=== PATIENT | male | born 1955 | race Caucasian/White ===

== ENCOUNTER 2016-06-03 06:19 | Inpatient (IN) | payer OTHER ==
[~2016-06-03] VITALS: Ht 172.7 cm; Wt 105.2 kg
[2016-06-03] VITALS (18 sets, daily range): BP systolic 115–184; BP diastolic 61–96
[~2016-06-03 06:19] MED LIST: ACET325T21 PO; ASPI81TA9 PO; CETI10TA16 PO; CLON0.1T PO; CLOP75TA27 PO; DIPH25CA58 PO; DOCU-27 PO; EZET10TA3 PO; IBUP-1007 PO; INSU100I17 SQ; INSU100I18 SQ; INSU100V5 SUBCUT; LISI2.5T PO; LOSA50TA2 PO; METF500T4 PO; MIRT30TA3 PO; NITR0.4T6 SL; NPH,100V SQ; PROAIR HFA8.5 GM IH; SIMV20TA PO; SIMV40TA3 PO; TERA2CAP3 PO; TOPI25TA32 PO; TRAM50TA PO; [UNRECOGNIZED DRUG - CODE] TP
[2016-06-03] MEDS: IV NORMAL SALINE 1000ML BAG 1,000 ML IV SCH ×2 (07:00→17:00)
[2016-06-03 07:12] LABS: BASO % 1 % (0-3); EOS % 3 % (0-3); HEMATOCRIT 43.9 % (39.0-53.0); HEMOGLOBIN 14.6 g/dL (13.0-17.5); LYMPH # 1.1 x10^3/uL (1.0-4.8); LYMPH % 22 % (24-48); MEAN CORPUSCULAR HEMOGLOBIN 30 pg (25-35); MEAN CORPUSCULAR HGB CONC 33 g/dL (31-37); MEAN CORPUSCULAR VOLUME 89 fL (79-100); MONO % 5 % (0-9); NEUT % 69 % (31-73); PLATELET COUNT 116 x10^3/uL (140-400); RED BLOOD COUNT 4.94 x10^6/uL (4.30-5.70); RED CELL DISTRIBUTION WIDTH 14.3 % (11.5-14.5); WHITE BLOOD COUNT 5.1 x10^3/uL (4.0-11.0)
[2016-06-03] MEDS ORDERED: IODIXANOL 320 MG/ML 100 ML VIAL. ONE ×2 (07:15→07:37)
[2016-06-03] MEDS ORDERED: LIDOCAINE 2% 20 ML VIAL. ONE (07:16)
[2016-06-03] MEDS ORDERED: HEPARIN for ARTERIAL LINE 1,500 ML ONE (07:16)
[2016-06-03] MEDS ORDERED: METO25TA4 PO (07:19)
[2016-06-03] MEDS ORDERED: INSU500V SQ (07:19)
[2016-06-03] MEDS ORDERED: IBUP-1007 PO (07:19)
[2016-06-03] MEDS ORDERED: ASPI81TA9 PO (07:19)
[2016-06-03] MEDS ORDERED: CLOP75TA27 PO (07:19)
[2016-06-03] MEDS ORDERED: SIMV40TA3 PO (07:19)
[2016-06-03] MEDS ORDERED: ISOS30TA4 PO (07:19)
[2016-06-03] MEDS ORDERED: NITR0.4T6 SL (07:19)
[2016-06-03] MEDS ORDERED: LISI10TA2 PO (07:19)
[2016-06-03 07:21] LABS: CALCIUM 9.1 mg/dL (8.5-10.1)
[2016-06-03 07:28] LABS: INR 1.1 (0.8-1.1); PROTHROMBIN TIME PATIENT 13.1 SEC (11.7-14.0)
--- NOTE | 2016-06-03 08:16 | PDOC ---
MODERATE SEDATION ASSESSMENT RISKS/ALTERNATIVES Risks/Alternatives Risks and alternatives of this type of sedation and procedure discussed with: RISK/ALTERNATIVES: Patient H & P ON CHART H & P H & P on chart and reviewed for co-morbid conditions and appropriate labs. H&P ON CHART: Yes STATUS PREG STATUS ASSESSED: N/A MEDS/ALLERGIES REVIEWED Meds/Allergies Reviewed Medications and Allergies including time and route of recently administered narcotics and sedatives. MEDS/ALLERGIES REVIEWED: Yes ASA RATING ASA RATING: II AIRWAY ASSESSMENT Airway Assessment Airway patency, oral function limitations, presence of caps, crowns, dentures, partials, and ability to extend neck assessed. AIRWAY ASSESSMENT: Yes MALLAMPATI SCORE MALLAMPATI SCORE: II PRE-SEDATION ASSESSMENT PRE-SEDATION ASSESSMENT: Yes NAYAN ZENDEJAS MD Jun 03, 2016 08:16
[2016-06-03] MEDS ORDERED: FENTANYL PF 250 MCG/5 ML VIAL. ONE (08:27)
[2016-06-03] MEDS ORDERED: MIDAZOLAM HCL/PF 5 MG/5 ML VIAL ONE (08:27)
[2016-06-03] MEDS ORDERED: HEPARIN for IV BOLUS 10,000 UNIT/10 ML VIAL. ONE (08:28)
[2016-06-03] MEDS ORDERED: CONTRAST GIVEN MC PRN (08:45)
[2016-06-03] MEDS ORDERED: MIDAZOLAM HCL/PF 5 MG/5 ML VIAL IV ONE (08:45)
[2016-06-03] MEDS ORDERED: IODIXANOL 320 MG/ML 100 ML VIAL. IART ONE (08:45)
[2016-06-03] MEDS ORDERED: HEPARIN for IV BOLUS 10,000 UNIT/10 ML VIAL. IV ONE (08:45)
[2016-06-03] MEDS ORDERED: FENTANYL PF 250 MCG/5 ML VIAL. IV ONE (08:45)
[2016-06-03] MEDS ORDERED: LIDOCAINE 2% 20 ML VIAL. IJ ONE (08:45)
[2016-06-03] MEDS ORDERED: NITROGLYCERIN 200 MCG/2 ML SYRINGE FOR CATH/VASC LAB. ONE (09:51)
[2016-06-03] MEDS ORDERED: NITROGLYCERIN 200 MCG/2 ML SYRINGE FOR CATH/VASC LAB. IART ONE (10:00)
[2016-06-03] MEDS ORDERED: PRASUGREL 10 MG TABLET. PO ONE (10:00)
[2016-06-03] MEDS ORDERED: PRASUGREL 10 MG TABLET. ONE (10:23)
[2016-06-03] MEDS ORDERED: NITROGLYCERIN SUBLINGUAL 0.4 MG BOTTLE OF 25. SL PRN (12:15)
[2016-06-03] MEDS ORDERED: AMIODARONE 150 MG in IV DEXTROSE 5% 100 ML IV PRN (12:15)
[2016-06-03] MEDS ORDERED: FENTANYL PF 100 MCG/2 ML VIAL. IV PRN (12:15)
[2016-06-03] MEDS ORDERED: LIDOCAINE 2% 100 MG/5 ML DISP.SYRIN. IV PRN (12:15)
[2016-06-03] MEDS ORDERED: ATROPINE 0.5 MG/5 ML DISP.SYRIN. IV PRN (12:15)
[2016-06-03] MEDS ORDERED: CYCLOBENZAPRINE 10 MG TABLET. PO PRN (12:15)
[2016-06-03] MEDS ORDERED: 0.9 % SODIUM CHLORIDE 10 ML DISP.SYRIN. IV PRN (12:15)
[2016-06-03] MEDS: PRASUGREL 10 MG TABLET. PO SCH (13:00)
--- NOTE | 2016-06-03 13:03 | EKG ---
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
[2016-06-03] MEDS: ISOSORBIDE MONONITRATE ER 30 MG TAB.ER.24H PO SCH (13:46)
[2016-06-03] MEDS: ASPIRIN ENTERIC COATED 81 MG TABLET.DR. PO SCH (13:46)
[2016-06-03] MEDS: LISINOPRIL 10 MG TABLET PO SCH (13:47)
[2016-06-03] MEDS: METOPROLOL TART IMMED RELEASE 25 MG TABLET PO SCH ×2 (13:47→21:08)
[2016-06-03] MEDS: ACETAMINOPHEN 325 MG TABLET. PO PRN ×2 (13:47→19:04)
[2016-06-03] MEDS: ATORVASTATIN CALCIUM 20 MG TABLET PO SCH ×2 (21:00→21:07)
[2016-06-03] MEDS ORDERED: SIMVASTATIN 40 MG TABLET. PO SCH (21:00)
[2016-06-04 03:30] VITALS: BP 137/69
[2016-06-04 07:25] VITALS: BP 134/65
[2016-06-04] MEDS: METOPROLOL TART IMMED RELEASE 25 MG TABLET PO SCH (08:14)
[2016-06-04] MEDS: ASPIRIN ENTERIC COATED 81 MG TABLET.DR. PO SCH (08:15)
[2016-06-04] MEDS: LISINOPRIL 10 MG TABLET PO SCH (08:15)
[2016-06-04] MEDS: ISOSORBIDE MONONITRATE ER 30 MG TAB.ER.24H PO SCH (08:15)
[2016-06-04] MEDS: PRASUGREL 10 MG TABLET. PO SCH (08:15)
[2016-06-04] MEDS: ACETAMINOPHEN 325 MG TABLET. PO PRN (08:16)
[2016-06-04 09:59] LABS: POTASSIUM 4.4 mmol/L (3.5-5.1)
[2016-06-04] MEDS ORDERED: PRAS10TA4 PO (10:01)
[2016-06-04 10:16] VITALS: BP 118/63
--- NOTE | 2016-06-04 10:49 | CARD ---
APPROVED REPORT Procedure(s) performed: HEEL TOP LIFT SPLITTER RCA - C9607 with LUIS DANIEL. PTCA DIAG 120mL Visipaque [id number] [id number] 21.5 min Fluoro HISTORY The patient is a 60 year-old male with a history of : diabetes mellitus with no treatment, coronary a rtery disease, previous PCI (The PCI date was 1997), hypertension, dyslipidemia, family history of pr emature CAD. INDICATION The indication(s) include : unstable angina , Patient is a 60-year-old male who presents to the [facility] for a planned outpatient HEEL TOP LIFT SPLITTER recanalization of his RCA. 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 Despite goal-directed medi deonna therapy at the highest tolerable doses he was continued to have exertional dyspnea and chest pain . In the setting after discussion of risks and benefits he was [facility] PCI of the RCA.. PROCEDURE NARRATIVE After appropriate consent the patient was brought to the catheterization laboratory and prepped and d raped in the supine position in usual sterile fashion. Bilateral common femoral arterial access was obtained using an 18-gauge needle and via the Seldinger approach to 6 [place] sheath were initially pl aced. Next, the sheaths were upsized to 8 [place] 45cm destination sheaths after initial pre-closure of the vessels. Subsequently, a 8000 unit bolus of heparin was administered. Next, a EBU 4.0 and an AL-[address] were engaged into the left main and right coronary arteries. Diagnostic angiography confirmed pr eviously known RCA and diagonal lesions. With the use of a Corsair catheter, and a yard pilot 200 guidewi re the proximal to distal RCA chronic total occlusion was traversed via the antegrade wire escalation approach. Contralateral injection confirmed intraluminal placement of the wire and subsequently bal loon angioplasty (2.08/25) and intervention was performed with insertion of overlapping Xience 3.0/38, 3.0/38 and 3.0/33 LUIS DANIEL from the ostium to the distal RCA post PCI angiography demonstrated excellent stent expansion with SID 3 flow in the vessel. Next, attention was then turned to the diagonal bifu rcating chronic total occlusion. Through a EBU 4.0 guide catheter and Prowater wire was placed in th e inferior diagonal branch. Next, a Corsair catheter was used to direct a yard pilot 200 guidewire into t he chronic total occlusion site of the superior branch ostium but despite repeated attempts due to po or distal visualization of the vessel this was unsuccessful. Balloon angioplasty (Trek 2.5) was t hen performed from the proximal diagonal into the inferior branch with a residual 50% stenosis but de spite this the superior branch could not be well-visualized. Therefore, further intervention was def erred. Finally, the bilateral groin sheaths were removed and the pre-close device sutures were deplo yed with adequate hemostasis. The patient received 60 mg of Effient at case completion. Findings: The left main and LAD did not demonstrate any significant obstructive disease. Left circumflex does not have any significanct disease. The first diagonal is occluded in the mid segment at the origin of a bifurcation with patency of the inferior branch and a ostial 90% stenosis and 100% subtotal occlusion of the superior branch. The RCA is diffusely diseased with 100% mid chronic occlusion with robust left to right collaterals. Conclusion 1. Successful recanalization via the antegrade wire escalation approach of the chronic occlusion of the right coronary artery. 2. Successful angioplasty of the first diagonal vessel with unsuccessful recanalization of the chron ic total occlusion of the superior branch. Recommendations Aggressive Medical Therapy Aspirin 81 mg daily Effient 10 mg daily, with resumption of Plavix after 30 days for lifelong dual anti-platelet therapy. Aggressive statin therapy and continue beta blockers and thang inhibitors as well as low-dose nitrate t herapy. Reassess in 6 weeks in clinic.
--- NOTE | 2016-06-04 15:02 | PDOC3 ---
LEX RUDD CANDY POLISHER 06/04/16 1502: Discharge Summary Visit Information Date of Admission: Jun 03, 2016 Date of Discharge: Jun 04, 2016 Admitting Diagnosis: CAD Final Diagnosis Problems Medical Problems: (1) CAD (coronary artery disease) Status: Acute Brief Hospital Course Allergies Allergies Coded Allergies Type Severity Reaction Last Updated Verified metformin Allergy Intermediate Rash 03/05/16 Yes sulfamethoxazole Allergy Intermediate 04/20/14 No trimethoprim Allergy Intermediate 04/20/14 No Vital Signs Vital Signs Date Time Temp Pulse Resp B/P Pulse Ox O2 Delivery O2 Flow Rate FiO2 06/04/16 10:16 98.3 67 18 118/63 93 Room Air 98.3 06/03/16 10:46 4.0 Lab Results Laboratory Tests Test 06/03/16 07:00 06/04/16 09:10 White Blood Count 5.1x10^3/uL (4.0-11.0) Red Blood Count 4.94x10^6/uL (4.30-5.70) Hemoglobin 14.6g/dL (13.0-17.5) Hematocrit 43.9% (39.0-53.0) Mean Corpuscular Volume 89fL (79-100) Mean Corpuscular Hemoglobin 30pg (25-35) Mean Corpuscular Hemoglobin Concent 33g/dL (31-37) Red Cell Distribution Width 14.3% (11.5-14.5) Platelet Count 116x10^3/uL (140-400) Neutrophils (%) (Auto) 69% (31-73) Lymphocytes (%) (Auto) 22% (24-48) Monocytes (%) (Auto) 5% (0-9) Eosinophils (%) (Auto) 3% (0-3) Basophils (%) (Auto) 1% (0-3) Neutrophils # (Auto) 3.5x10^3uL (1.8-7.7) Lymphocytes # (Auto) 1.1x10^3/uL (1.0-4.8) Monocytes # (Auto) 0.3x10^3/uL (0.0-1.1) Eosinophils # (Auto) 0.2x10^3/uL (0.0-0.7) Basophils # (Auto) 0.0x10^3/uL (0.0-0.2) Prothrombin Time 13.1SEC (11.7-14.0) Prothromb Time International Ratio 1.1 (0.8-1.1) Sodium Level 144mmol/L (136-145) 142mmol/L (136-145) Potassium Level 4.0mmol/L (3.5-5.1) 4.4mmol/L (3.5-5.1) Chloride Level 105mmol/L (98-107) 105mmol/L (98-107) Carbon Dioxide Level 33mmol/L (21-32) 31mmol/L (21-32) Anion Gap 6 (6-14) 6 (6-14) Blood Urea Nitrogen 15mg/dL (8-26) 16mg/dL (8-26) Creatinine 1.0mg/dL (0.7-1.3) 1.0mg/dL (0.7-1.3) Estimated GFR (Cockcroft-Gault) 76.0 76.0 Glucose Level 131mg/dL (70-99) 127mg/dL (70-99) Calcium Level 9.1mg/dL (8.5-10.1) 9.0mg/dL (8.5-10.1) Laboratory Tests Test 06/04/16 09:10 Sodium Level 142mmol/L (136-145) Potassium Level 4.4mmol/L (3.5-5.1) Chloride Level 105mmol/L (98-107) Carbon Dioxide Level 31mmol/L (21-32) Anion Gap 6 (6-14) Blood Urea Nitrogen 16mg/dL (8-26) Creatinine 1.0mg/dL (0.7-1.3) Estimated GFR (Cockcroft-Gault) 76.0 Glucose Level 127mg/dL (70-99) Calcium Level 9.0mg/dL (8.5-10.1) Brief Hospital Course Mr. Carter is a 60 old male who presented secondary to chronic total occlusion of the diagonal and RCA. Despite goal-directed medical therapy, at the highest tolerable doses, he continued to have exertional dyspnea and chest pain. After thorough discussion of risks and benefits, patient was electively brought to the catheterization laboratory for PCI of the RCA. Patient underwent successful recanalization via the antegrade wire escalation approach of the chronic occlusion of the right coronary artery, along with successful angioplasty of the first diagonal vessel with unsuccessful recanalization of the chronic total occlusion of the superior branch. Monitored overnight without complications or dysrhythmias noted on telemetry. Bilateral femoral arteriotomy site C/D/I with neurovascular status intact. Lungs CTA bilaterally. Heart tones regular; no murmurs present. DAPT with Aspirin 81 mg daily and Effient 10 mg daily, with resumption of Plavix after 30 days for lifelong dual anti-platelet therapy. Discharge Information Condition at Discharge: Improved Follow Up: Weeks (6) Disposition/Orders: D/C to Another Facility ([facility] ) Scheduled Aspirin (Aspirin Ec) 1 TAB PO DAILY (Reported) Isosorbide Mononitrate (Isosorbide Mononitrate Er) 1 TAB PO DAILY (Reported) Lisinopril (Lisinopril) 1 TAB PO DAILY (Reported) Metoprolol Tartrate (Metoprolol Tartrate) 1 TAB PO BID (Reported) Prasugrel Hcl (Effient) 1 TAB PO DAILY Simvastatin (Simvastatin) 1 TAB PO QHS (Reported) Scheduled PRN Nitroglycerin (NITROGLYCERIN SubLingual) 0.4 MG SL PRN Q5MIN PRN PRN CHEST PAIN (Reported) Miscellaneous Medications Insulin Regular, Human (Humulin R) 500 UNIT SQ (Reported) Discontinued Medications Acetaminophen (Acetaminophen) 650 MG PO (Reported) Aspirin (Aspirin Ec) 81 MG PO (Reported) Clopidogrel Bisulfate (Plavix) 75 MG PO DAILY (Reported) Clopidogrel Bisulfate (Plavix) 1 TAB PO DAILY (Reported) Ibuprofen (Ibuprofen) 600 MG PO TID PRN PRN PRN INFLAMMATION (Reported) Insulin Regular, Human (Humulin R) 0 SUBCUT TIDAC PRN PRN SEE COMMENTS (Reported ) Lisinopril (Lisinopril) 2.5 MG PO DAILY (Reported) Losartan Potassium (Cozaar) 50 MG PO BID (Reported) Metformin Hcl (Metformin Hcl) 500 MG PO DAILYBFRSUP (Reported) Mirtazapine (Mirtazapine) 30 MG PO HS (Reported) Nitroglycerin (NITROGLYCERIN SubLingual) 0.4 MG SL PRN Q5MIN PRN PRN CHEST PAIN (Reported) Nph, Human Insulin Isophane (Humulin N) 15 SQ DAILY08 (Reported) Nph, Human Insulin Isophane (Humulin N) 8 UNIT SQ HS (Reported) Simvastatin (Simvastatin) 40 MG PO HS (Reported) Terazosin Hcl (Terazosin Hcl) 1 MG PO QHS (Reported) Topiramate (Topamax) 25 MG PO BID (Reported) Patient Instructions Patient Instructions GENERAL INSTRUCTIONS: 1. Your dressing should be removed prior to leaving the hospital. 2. It is OK to shower the day after your procedure. 3. If you received stents, be sure to carry your stent information card with you in your wallet/purse at all times. 4. Call the office immediately at [phone] if you notice any fever or if there is redness, worsening tenderness/pain, increased bruising, or drainage from the puncture site. 5. Should you have bleeding from the site, lie down immediately & put pressure on the site. The pressure should be hard enough to stop the bleeding. Have the nearest person call 911. DO NOT try to drive to the ER with active bleeding. 6. If you notice a change in color, coolness to touch, or loss of feeling in the affected extremity, come to the emergency room. Please have someone drive you or call 911 if no one is available. DO NOT drive yourself. 7. If you normally take glucophage (metformin), please do not take this medicine for 48 hours following your procedure. 8. DO NOT STOP TAKING YOUR PLAVIX OR ASPIRIN UNLESS IT IS CLEARED BY A FABRIC INSPECTOR OF YOUR ORDNANCE EQUIPMENT WORKER AT OUR OFFICE. 9. QUIT SMOKING: the [place] [employer], [place] [employer], & [place] [employer] have cessation resources available on their websites 10. Please have someone available to drive you home from the hospital as you may be limited by sedation medications given during the procedure. Femoral (Groin) access: 1. Do no lifting, pushing, pulling, bending, stooping, or recurrent stair climbing for 3 days following your procedure. 2. Once past the first 3 days, do not do any HEAVY exertion or lifting for one week following the procedure. No gym workouts, running, lifting greater than a gallon of milk, etc 3. Do not submerge in bath or pool for one week. OK to drive 3 days following your procedure, but if going long distance, do not go alone & take hourly breaks to get out of car and walk around. Radial Artery (Wrist) access: 1. No pushing, pulling, lifting, typing, or anything that requires repetitive use/movement of the affected wrist for 3 days following your procedure. 2. OK to drive the day following your procedure. (This is because of effects of sedating medications.) Call the office at [phone] for any questions or concerns. NAYAN ZENDEJAS MD 06/04/16 3627: Discharge Summary Brief Hospital Course Brief Hospital Course Patient seen and examined postoperatively. No issues prior to discharge. Neurovascularly intact. A good nurse practitioner note. We'll discharge on Effient and aspirin. Remainder of medications as listed. Will follow up in clinic in approximately 6 weeks. Discharge Information Scheduled Aspirin (Aspirin Ec) 1 TAB PO DAILY (Reported) Isosorbide Mononitrate (Isosorbide Mononitrate Er) 1 TAB PO DAILY (Reported) Lisinopril (Lisinopril) 1 TAB PO DAILY (Reported) Metoprolol Tartrate (Metoprolol Tartrate) 1 TAB PO BID (Reported) Prasugrel Hcl (Effient) 1 TAB PO DAILY Simvastatin (Simvastatin) 1 TAB PO QHS (Reported) Scheduled PRN Nitroglycerin (NITROGLYCERIN SubLingual) 0.4 MG SL PRN Q5MIN PRN PRN CHEST PAIN (Reported) Miscellaneous Medications Insulin Regular, Human (Humulin R) 500 UNIT SQ (Reported) Discontinued Medications Acetaminophen (Acetaminophen) 650 MG PO (Reported) Aspirin (Aspirin Ec) 81 MG PO (Reported) Clopidogrel Bisulfate (Plavix) 75 MG PO DAILY (Reported) Clopidogrel Bisulfate (Plavix) 1 TAB PO DAILY (Reported) Ibuprofen (Ibuprofen) 600 MG PO TID PRN PRN PRN INFLAMMATION (Reported) Insulin Regular, Human (Humulin R) 0 SUBCUT TIDAC PRN PRN SEE COMMENTS (Reported ) Lisinopril (Lisinopril) 2.5 MG PO DAILY (Reported) Losartan Potassium (Cozaar) 50 MG PO BID (Reported) Metformin Hcl (Metformin Hcl) 500 MG PO DAILYBFRSUP (Reported) Mirtazapine (Mirtazapine) 30 MG PO HS (Reported) Nitroglycerin (NITROGLYCERIN SubLingual) 0.4 MG SL PRN Q5MIN PRN PRN CHEST PAIN (Reported) Nph, Human Insulin Isophane (Humulin N) 15 SQ DAILY08 (Reported) Nph, Human Insulin Isophane (Humulin N) 8 UNIT SQ HS (Reported) Simvastatin (Simvastatin) 40 MG PO HS (Reported) Terazosin Hcl (Terazosin Hcl) 1 MG PO QHS (Reported) Topiramate (Topamax) 25 MG PO BID (Reported) LEX RUDD APRN Jun 04, 2016 15:02 NAYAN ZENDEJAS MD Jun 04, 2016 18:24
== END 2016-06-04 12:01 | DRG 247 ==
LOC: CCL 06:19 → 2 NORTH 11:42 → CVICU 17:22
PROVIDERS: ADMIT Internal Medicine Cardiovascular Disease; ATTEND Internal Medicine Cardiovascular Disease
PROC: 027035Z Dilation of Coronary Artery, One Artery with Two Drug-eluting Intraluminal Devices, Percutaneous Approach (ICD-10-PCS; principal; 2016-06-04)
PROC: 02703ZZ Dilation of Coronary Artery, One Artery, Percutaneous Approach (ICD-10-PCS; 2016-06-04)
DX: I25.119 Atherosclerotic heart disease of native coronary artery with unspecified angina pectoris (principal); I25.82 Chronic total occlusion of coronary artery; Z98.61 Coronary angioplasty status; Z79.82 Long term (current) use of aspirin; Z88.8 Allergy status to other drugs, medicaments and biological substances; Z88.2 Allergy status to sulfonamides; Z79.899 Other long term (current) drug therapy; I10 Essential (primary) hypertension; E78.5 Hyperlipidemia, unspecified; E11.8 Type 2 diabetes mellitus with unspecified complications; K21.9 Gastro-esophageal reflux disease without esophagitis; M19.90 Unspecified osteoarthritis, unspecified site; I42.9 Cardiomyopathy, unspecified
CPT/HCPCS: 36415; 80048; 85027; 85347; 85610; 92920; 92943; 93005; C1725; C1769; C1771; C1874; C1887; C1892; G0269; J2250; J3010; J3490

== ENCOUNTER → 2018-02-04 | Outpatient (CLI) | payer OTHER ==
[2018-01-25 11:00] VITALS: BP 114/58
[~2018-02-04] MED LIST changes: +ACET500T55 PO; +ASPI-612 PO; -ASPI81TA9 PO; +CLOP75TA PO; -CLOP75TA27 PO; +CLOP75TA57 PO; +CONTRAST GIVEN. MC PRN; +DOCU-109 PO; -DOCU-27 PO; +EZET10TA18 PO; -EZET10TA3 PO; +INSU500V SQ; +IOHEXOL 300 MG/ML 100ML VIAL. IV ONE; +ISOS30TA4 PO; +LACT20SO PO; +LISI10TA2 PO; +METF500T16 PO; -METF500T4 PO; +METO25TA4 PO; +NITR0.4T22 SL; -NITR0.4T6 SL; +PRAS10TA9 PO; -TOPI25TA32 PO; +TOPI25TA52 PO
--- NOTE | 2018-02-04 18:16 | KCIC ---
CT scan of the neck with contrast 02/04/2018 CLINICAL HISTORY: History of cervical fusion. Low-grade fever. Difficulty swallowing. TECHNIQUE: After the intravenous administration of 95 cc of Omnipaque 300, contiguous, 3 mm axial sections were obtained through the neck. One or more of the following individualized dose reduction techniques were utilized for this study: 1. Automated exposure control. 2. Adjustment of the mA and/or kV according to patient size. 3. Use of iterative reconstruction technique. FINDINGS: The patient is post anterior fusion using an anterior plate, bone screws and bone graft material at C5-6. Beam hardening artifact from the fusion hardware limits evaluation of the soft tissue structures of the lower neck. Small collections of air are seen within the soft tissues of the left neck consistent with recent surgery. Prevertebral soft tissue swelling is seen in the region of the surgery. An oval-shaped fluid collection is seen immediately anterior to the fusion plate within the prevertebral soft tissues of the cervical spine projecting to the left of midline. This measures 2.8 x 2.3 x 0.6 cm in transverse, craniocaudal and AP dimensions. This could represent a seroma; however, an abscess is not excluded. Clinical correlation is recommended. No additional abnormal fluid collection is noted. The mucosal structures of the nasopharynx, oropharynx, hypopharynx and larynx are within normal limits. The parotid and submandibular glands are within normal limits. Moderate atheromatous/atherosclerotic calcification of the carotid bifurcations is seen. The apices of the lungs are clear. Degenerative changes are seen throughout the uncovertebral and facet joints involving the cervical disc spaces. IMPRESSION: 2.8 cm fluid collection is seen within the prevertebral soft tissues immediately anterior to the fusion hardware at the C5-6 level which may represent a seroma or abscess. Clinical correlation is recommended. Electronically signed by: Sidney Vasquez MD (02/04/2018 6:13 PM) [id number]
== END | disposition home or self-care (01) ==
LOC: KCIC CT 11:16
DX: M54.2 Cervicalgia (principal); R22.1 Localized swelling, mass and lump, neck
CPT/HCPCS: 70491; 82565; Q9967